=== PATIENT | female | born 1975 ===

== ENCOUNTER 2017-05-11 05:45 | Inpatient (IN) | payer OTHER ==
--- NOTE | 2017-05-11 07:53 | OBHP ---
Datetime: 05/11/2017 06:25 IP Adm Impression: Term, intrauterine IP Admit Plan: Observation/Evaluation Admit Comment, IP Provider: 41 yo at 38+6 wks w/ EDC 05/19/2017 c/o watery VB at 4 am, also c/o abdominal pain since 4am. Pt denies LOF, reports FM. Pt had her PNcare w/ [facility] w/ Dr. Sasha zavala. Pt transferred her care to him at 33 wks. 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, pt denies STDs, abn paps POb hx: 2014 male 2.5 Kg 04/2016 SAB at 6 wks, no D_C PE: AFVSS Gen'l: Pt appears slightly uncomfortable Heart: RRR Chest: Lungs CTA/ b/l Abd: soft, NT, gravid Ext: NT, no edema Speculum exam: no blood VE: 4/80/-3 at 06:19 am EFM: as above [place]: as above A/P: 41 yo at 38+6 wks possibly in early labor GBS negative, FHT reactive Will observe Extremities - PN: Normal Abdomen - PN: Normal Back - PN: Normal Lungs - PN: Normal Neurologic - PN: Normal General - PN: Normal FHR - Baseline A Provider: 130s Membranes, Provider: Intact Contraction Comments Provider: irregular EGA AdmitDate IP: 38.6 Vital Signs Provider: Reviewed IP Chief Complaint: Vaginal bleeding NICHD Variability Prov Fetus A: Moderate 6-25bpm NICHD Accel Fetus A IP Provider: 15X15 FHR Category Provider Fetus A: Category I NICHD Decel Fetus A IP Provider: None Dilatation, Provider: 4 Effacement, Provider: 80 Station, Provider: -3 Genitourinary Exam: Normal
[2017-05-11 08:48] VITALS: BMI 27.6
[2017-05-11] MEDS: Lactated Ringer's 1,000 ML IV SCH ×3 (09:00→12:00)
[2017-05-11] MEDS ORDERED: Fentanyl/Bupivacaine HCl 250 ML EPI ONE (11:03)
[2017-05-11] MEDS ORDERED: Bupivacaine HCl 0.25% PF (10 ml) Inj ONE (11:04)
[2017-05-11 11:18] LABS: BASO # 0.1 K/uL (0.0-0.2); BASO % 0.7 % (0.0-2.0); EOS # 0.1 K/uL (0.0-0.7); EOS % 0.5 % (0.0-4.0); HEMOGLOBIN 12.8 g/dL (12.0-16.0); LYMPH # 3.1 K/uL (1.0-4.3); LYMPH % 19.7 % (20.0-40.0); MEAN CELL VOLUME 79.7 fl (81.0-99.0); MEAN CORPUSCULAR HEMOGLOBIN 26.4 pg (27.0-31.0); MEAN PLATELET VOLUME 8.2 fl (7.2-11.7); MONO # 0.6 K/uL (0.0-0.8); MONO % 3.7 % (0.0-10.0); NEUT # 11.8 K/uL (1.8-7.0); NEUT % 75.4 % (50.0-75.0); NRBC % 0.1 % (0.0-0.0); RBC 4.85 Mil/uL (3.80-5.20); RED CELL DISTRIBUTION WIDTH 15.9 % (11.5-14.5); WHITE BLOOD COUNT 15.7 K/uL (4.8-10.8)
[2017-05-11] MEDS ORDERED: Oxytocin 30 UNITS in Sodium Chloride 0.9% 500 ML IV ONE (12:01)
--- NOTE | 2017-05-11 12:34 | OBADHP ---
Datetime: 05/11/2017 06:25 Admit Comment, IP Provider: 41 yo at 38+6 wks w/ EDC 05/19/2017 c/o watery VB at 4 am, also c/o abdominal pain since 4am. Pt denies LOF, reports FM. Pt had her PNcare w/ [facility] w/ Dr. Sasha zavala. Pt transferred her care to him at 33 wks. 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 I saw this patient 10am and she wanted pain managment. No cervical change ...will obtain anesthesia consult. Also discussed nitrous oxide/IV sedation/augmentation, labor, [place] and care Extremities - PN: Normal Abdomen - PN: Normal Back - PN: Normal Lungs - PN: Normal Neurologic - PN: Normal General - PN: Normal Presentation-Admit: Vertex FHR - Baseline A Provider: 130s Membranes, Provider: Intact Contraction Comments Provider: irregular IP Hx Assessment: The History has been Reviewed and is Current Vital Signs Provider: Reviewed IP Chief Complaint: Uterine contractions NICHD Variability Prov Fetus A: Moderate 6-25bpm NICHD Accel Fetus A IP Provider: 15X15 FHR Category Provider Fetus A: Category I NICHD Decel Fetus A IP Provider: None Dilatation, Provider: 4 Effacement, Provider: 90 Station, Provider: -2 Genitourinary Exam: Normal EGA AdmitDate IP: 38.6 IP Adm Impression: Term, intrauterine ; No Active Labor; Intact Membranes IP Admit Plan: Admit to unit; Initiate labor protocol
[2017-05-11] MEDS ORDERED: Lactated Ringer's 1,000 ML IV SCH (13:30)
[2017-05-11] MEDS ORDERED: Oxytocin 30 UNITS in Sodium Chloride 0.9% 500 ML IV SCH (13:30)
--- NOTE | 2017-05-11 13:47 | OBPN ---
Datetime: 05/11/2017 13:30 IP Progress Impression: Normal progression of labor; Reassuring heart rate IP Informed Consent Obtain: Vaginal Delivery; Risks, Benefits and Alternatives Discussed IP Progress Plan: Continue present management; Augmentation Pool Provider: Negative Membranes, Provider: Intact Contraction Comments Provider: irregular FHR - Baseline A Provider: 130 Presentation-Admit: Vertex IP Progress Note Comment: She feels much better after epidural. A: Latent phase of labor PLAN: attempted AROM but unable ... will start Pitocin ... this was explained to pt and her margarita Esteban. they agreed NICHD Accel Fetus A IP Provider: 15X15 FHR Category Provider Fetus A: Category I NICHD Variability Prov Fetus A: Moderate 6-25bpm Dilatation, Provider: 5 Effacement, Provider: 90 Station, Provider: -2 NICHD Decel Fetus A IP Provider: None Datetime: 05/11/2017 06:25 Vital Signs Provider: Reviewed
[2017-05-11] MEDS ORDERED: Lidocaine 1% Inj (20ml) ONE (14:41)
--- NOTE | 2017-05-11 14:59 | OBPN ---
Datetime: 05/11/2017 14:50 IP Progress Impression: Normal progression of labor; Reassuring heart rate IP Informed Consent Obtain: Vaginal Delivery; Risks, Benefits and Alternatives Discussed IP Procedures: Intrauterine Pressure Catheter; Amnio Infusion Pool Provider: Positive Membranes, Provider: Ruptured FHR - Baseline A Provider: 130 Presentation-Admit: Vertex IP Progress Note Comment: She was not started on Piotcin...she was noted to have early deceleration and SROM with clear fluid A: Occ variable/early decel noted IUPC/Amniuinfuse NICHD Accel Fetus A IP Provider: 15X15 FHR Category Provider Fetus A: Category II NICHD Variability Prov Fetus A: Moderate 6-25bpm Dilatation, Provider: 8-9 Effacement, Provider: 90 Station, Provider: 0 NICHD Decel Fetus A IP Provider: Variable
[2017-05-11] MEDS ORDERED: Sodium Chloride 0.9% 1,000 ML IV SCH (15:00)
[2017-05-11] MEDS ORDERED: Benzocaine/Menthol SPRAY TOP PRN ×2 (17:50→22:17)
[2017-05-11] MEDS ORDERED: Oxycodone/Acetaminophen 5/325 mg Tab PO PRN ×2 (17:50→22:17)
[2017-05-12 07:23] LABS: HEMOGLOBIN 10.8 g/dL (12.0-16.0); MEAN CELL VOLUME 79.7 fl (81.0-99.0); MEAN CORPUSCULAR HEMOGLOBIN 26.8 pg (27.0-31.0); MEAN CORPUSCULAR HGB CONC 33.6 g/dL (33.0-37.0); RBC 4.04 Mil/uL (3.80-5.20); RED CELL DISTRIBUTION WIDTH 15.7 % (11.5-14.5); WHITE BLOOD COUNT 14.5 K/uL (4.8-10.8)
--- NOTE | 2017-05-12 07:37 | OBDS ---
DELIVERY PERSONNEL Delivery Doctor: Varun Colon DO Plaster Lather: Dionne Kerr RN Anesthesiologist: Crow Christianson MD Lung Gun Operator: raghavendra MATERNAL INFORMATION Delivery Anesthesia: Local; Epidural Medications in Delivery: pitocin 30 units after placenta delivery Estimated Blood Loss (ml): 200 Placenta Cultured: No Maternal Complications: Other Other Maternal Complications: variable decel Provider Comments: Over intact perineum, of live male from . Two loose nuchal cords noted and reduced. Infant was crying spontaneously and bulb suctioned. [id number] w as done with baby/mother. 9,9 Placenta delivered intact. EBL 200cc She remained stable LABOR SUMMARY EDC: 05/19/2017 00:00 No. Babies in Womb: 1 Attempted: No Labor Anesthesia: Epidural LABOR INFORMATION Onset of Labor: 05/11/2017 03:30 Complete Dilatation: 05/11/2017 16:30 Oxytocin: N/A Group B Beta Strep: Negative MEMBRANES Membranes Rupture Method: Spontaneous Rupture of Membranes: 05/11/2017 14:30 Length of Rupture (hrs): 3.10 Amniotic Fluid Color: Clear Amniotic Fluid Amount: Small Amniotic Fluid Odor: Normal STAGES OF LABOR Stage 1 hrs: 13 Stage 1 min: 0 Stage 2 hrs: 1 Stage 2 min: 6 Stage 3 hrs: 0 Stage 3 min: 10 Total Time in Labor hrs: 14 Total Time in Labor min: 16 VAGINAL DELIVERY Episiotomy: None Laceration Extension: First Degree Laceration Type: Perineal Other Laceration: none Laceration Repair: Yes Laceration Repair Note: 1% Lidocaine infiltrated (4cc). First degree repaired with 2.0 Vicryl Rapid e suture. Initial Vag Sponge Count: 5 Final Vag Sponge Count: 5 Initial Vag Sharps Count: 2 Final Vag Sharps Count: 2 Sponge Count Correct: Yes Sharps Count Correct: Yes Count Comment: 5 lap pads one syringe / one syringe needle One suture needle BABY A INFORMATION Delivery Date/Time: 05/11/2017 17:36 Method of Delivery: Vaginal Born in Route : Yes : N/A Forceps: N/A Vacuum Extraction: N/A Shoulder Dystocia : No SHOULDER DYSTOCIA BABY A Delivery Date/Time: 05/11/2017 17:36 PRESENTATION/POSITION BABY A Presentation: Cephalic Cephalic Presentation: Vertex Vertex Position: Left Occipital Anterior Breech Presentation: N/A PLACENTA INFORMATION BABY A Placenta Delivery Time : 05/11/2017 17:46 Placenta Method of Delivery: Spontaneous Placenta Status: Delivered SCORES BABY A Heart Rate 1 min: >100 bpm Resp Effort 1 min: Good Cry Reflex Irritability 1 min: Cough or Sneeze or Pulls Away Muscle Tone 1 min: Active Motion Color 1 min: Body [place], Extremities Blue Resuscitation Effort 1 min: N/A; Tactile Stimulation SCORE 1 MIN: 9 Heart Rate 5 min: >100 bpm Resp Effort 5 min: Good Cry Reflex Irritability 5 min: Cough or Sneeze or Pulls Away Muscle Tone 5 min: Active Motion Color 5 min: Body [place], Extremities Blue SCORE 5 MIN: 9 Heart Rate 10 min: >100 bpm Resp Effort 10 min: Good Cry Reflex Irritability 10 min: Cough or Sneeze or Pulls Away Muscle Tone 10 min: Active Motion Color 10 min: Completely [place] SCORE 10 MIN: 10 INFORMATION BABY A Gestational Age at Delivery: 38+6 Gestational Status: Term Infant Outcome : Liveborn Condition : Stable Infant Sex: Male IDENTIFICATION/MEDS BABY A ID Band Number: [id number] ID Band Location: Left Leg; Left Arm WEIGHT/LENGTH BABY A Infant Birthweight (gms): 2705 Infant Weight (lb): 5 Weight (oz): 15 Infant Length Inches: 18.50 Infant Length cms: 47.0 CORD INFORMATION BABY A No. 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
--- NOTE | 2017-05-12 07:38 | OBDS ---
DELIVERY PERSONNEL Delivery Doctor: Varun Colon DO 2Nd [place]: Dionne Kerr RN Anesthesiologist: Crow Christianson MD University Internship: raghavendra MATERNAL INFORMATION Delivery Anesthesia: Local; Epidural Medications in Delivery: pitocin 30 units after placenta delivery Estimated Blood Loss (ml): 200 Placenta Cultured: No Maternal Complications: Other Other Maternal Complications: variable decel Provider Comments: Over intact perineum, of live [facility] from [facility]. Two loose nuchal cords noted and reduced. Infant was crying spontaneously and bulb suctioned. [id number] w as done with baby/mother. 9,9 Placenta delivered intact. EBL 200cc She remained stable LABOR SUMMARY EDC: 05/19/2017 00:00 No. Babies in Womb: 1 Attempted: No Labor Anesthesia: Epidural LABOR INFORMATION Onset of Labor: 05/11/2017 03:30 Complete Dilatation: 05/11/2017 16:30 Oxytocin: N/A Group B Beta Strep: Negative MEMBRANES Membranes Rupture Method: Spontaneous Membranes Rupture Method: Spontaneous Membranes Rupture Method: Spontaneous Membranes Rupture Method: Spontaneous Membranes Rupture Method: Spontaneous Membranes Rupture Method: Spontaneous Membranes Rupture Method: Spontaneous Membranes Rupture Method: Spontaneous Membranes Rupture Method: Spontaneous Membranes Rupture Method: Spontaneous Membranes Rupture Method: Spontaneous Membranes Rupture Method: Spontaneous Membranes Rupture Method: Spontaneous Membranes Rupture Method: Spontaneous Rupture of Membranes: 05/11/2017 14:30 Rupture of Membranes: 05/11/2017 14:30 Rupture of Membranes: 05/11/2017 14:30 Rupture of Membranes: 05/11/2017 14:30 Rupture of Membranes: 05/11/2017 14:30 Rupture of Membranes: 05/11/2017 14:30 Rupture of Membranes: 05/11/2017 14:30 Rupture of Membranes: 05/11/2017 14:30 Rupture of Membranes: 05/11/2017 14:30 Rupture of Membranes: 05/11/2017 14:30 Rupture of Membranes: 05/11/2017 14:30 Rupture of Membranes: 05/11/2017 14:30 Rupture of Membranes: 05/11/2017 14:30 Rupture of Membranes: 05/11/2017 14:30 Length of Rupture (hrs): 3.10 Length of Rupture (hrs): 3.10 Length of Rupture (hrs): 3.10 Length of Rupture (hrs): 3.10 Length of Rupture (hrs): 3.10 Length of Rupture (hrs): 3.10 Length of Rupture (hrs): 3.10 Length of Rupture (hrs): 3.10 Length of Rupture (hrs): 3.10 Length of Rupture (hrs): 3.10 Length of Rupture (hrs): 3.10 Length of Rupture (hrs): 3.10 Length of Rupture (hrs): 3.10 Length of Rupture (hrs): 3.10 Amniotic Fluid Color: Clear Amniotic Fluid Color: Clear Amniotic Fluid Color: Clear Amniotic Fluid Color: Clear Amniotic Fluid Color: Clear Amniotic Fluid Color: Clear Amniotic Fluid Color: Clear Amniotic Fluid Color: Clear Amniotic Fluid Color: Clear Amniotic Fluid Color: Clear Amniotic Fluid Color: Clear Amniotic Fluid Color: Clear Amniotic Fluid Color: Clear Amniotic Fluid Color: Clear Amniotic Fluid Amount: Small Amniotic Fluid Amount: Small Amniotic Fluid Amount: Small Amniotic Fluid Amount: Small Amniotic Fluid Amount: Small Amniotic Fluid Amount: Small Amniotic Fluid Amount: Small Amniotic Fluid Amount: Small Amniotic Fluid Amount: Small Amniotic Fluid Amount: Small Amniotic Fluid Amount: Small Amniotic Fluid Amount: Small Amniotic Fluid Amount: Small Amniotic Fluid Amount: Small Amniotic Fluid Odor: Normal Amniotic Fluid Odor: Normal Amniotic Fluid Odor: Normal Amniotic Fluid Odor: Normal Amniotic Fluid Odor: Normal Amniotic Fluid Odor: Normal Amniotic Fluid Odor: Normal Amniotic Fluid Odor: Normal Amniotic Fluid Odor: Normal Amniotic Fluid Odor: Normal Amniotic Fluid Odor: Normal Amniotic Fluid Odor: Normal Amniotic Fluid Odor: Normal Amniotic Fluid Odor: Normal STAGES OF LABOR Stage 1 hrs: 13 Stage 1 min: 0 Stage 2 hrs: 1 Stage 2 min: 6 Stage 3 hrs: 0 Stage 3 min: 10 Total Time in Labor hrs: 14 Total Time in Labor min: 16 VAGINAL DELIVERY Episiotomy: None Laceration Extension: First Degree Laceration Type: Perineal Other Laceration: none Laceration Repair: Yes Laceration Repair Note: 1% Lidocaine infiltrated (4cc). First degree repaired with 2.0 Vicryl Rapid e suture. Initial Vag Sponge Count: 5 Final Vag Sponge Count: 5 Initial Vag Sharps Count: 2 Final Vag Sharps Count: 2 Sponge Count Correct: Yes Sharps Count Correct: Yes Count Comment: 5 lap pads one syringe / one syringe needle One suture needle BABY A INFORMATION Infant Delivery Date/Time: 05/11/2017 17:36 Method of Delivery: Vaginal Born in Route : Yes : N/A Forceps: N/A Vacuum Extraction: N/A Shoulder Dystocia : No SHOULDER DYSTOCIA BABY A Infant Delivery Date/Time: 05/11/2017 17:36 PRESENTATION/POSITION BABY A Presentation: Cephalic Cephalic Presentation: Vertex Vertex Position: Left Occipital Anterior Breech Presentation: N/A PLACENTA INFORMATION BABY A Placenta Delivery Time : 05/11/2017 17:46 Placenta Method of Delivery: Spontaneous Placenta Status: Delivered SCORES BABY A Heart Rate 1 min: >100 bpm Resp Effort 1 min: Good Cry Reflex Irritability 1 min: Cough or Sneeze or Pulls Away Muscle Tone 1 min: Active Motion Color 1 min: Body [place], Extremities Blue Resuscitation Effort 1 min: N/A; Tactile Stimulation SCORE 1 MIN: 9 Heart Rate 5 min: >100 bpm Resp Effort 5 min: Good Cry Reflex Irritability 5 min: Cough or Sneeze or Pulls Away Muscle Tone 5 min: Active Motion Color 5 min: Body [place], Extremities Blue SCORE 5 MIN: 9 Heart Rate 10 min: >100 bpm Resp Effort 10 min: Good Cry Reflex Irritability 10 min: Cough or Sneeze or Pulls Away Muscle Tone 10 min: Active Motion Color 10 min: Completely [place] SCORE 10 MIN: 10 INFANT INFORMATION BABY A Gestational Age at Delivery: 38+6 Gestational Status: Term Infant Outcome : Liveborn Condition : Stable Sex: Male IDENTIFICATION/MEDS BABY A ID Band Number: [id number] ID Band Location: Left Leg; Left Arm WEIGHT/LENGTH BABY A Infant Birthweight (gms): 2705 Infant Weight (lb): 5 Weight (oz): 15 Infant Length Inches: 18.50 Infant Length cms: 47.0 CORD INFORMATION BABY A No. Cord Vessels: 3 Nuchal Cord : Around Neck x2, Loose Nuchal Cord Other: no True Knot: no Infant Cord pH Baby Arterial: no Infant Cord pH Baby Venous: no Cord Blood Taken: Yes Banking/Donate Info: no Infant Suction: Mouth; Nose ASSESSMENT BABY A Complications: None Physical Findings at Delivery: Within Normal Limits Respirations: Appears Normal Nutrition Tech/ALS Called : No Transferred To: Remains with Mother
[2017-05-12] MEDS: Multivitamin With Minerals Tab PO SCH (08:52)
[2017-05-12] MEDS ORDERED: [UNRECOGNIZED DRUG - REMARK] PO SCH (09:00)
[2017-05-12] MEDS ORDERED: Prenatal Multivit/Folic Acid/Iron Tab PO SCH ×2 (09:00)
--- NOTE | 2017-05-12 11:58 | OBPPN ---
Datetime: 05/12/2017 11:56 PP Pain Prov: Within normal limits PP Nausea Prov: Denies PP Flatus Prov: Yes PP Breasts Prov: Not Done PP Heart Prov: Normal PP Lungs Prov: Normal PP Abdomen/Uterus Prov: Normal PP Lochia Prov: Not Done PP CVA Tenderness Prov: Normal PP Extremities Prov: Normal PP C/S Incision Prov: Normal PP Progress Prov: Normal PP Impression Prov: Normal progression PP Plan Prov: Continue present management PP Progress Note Prov: Patient doing well. Well-controlled Vital signs stable afebrile Uterus firm below the umbilicus Incision clean dry and intact Postoperative day #2 Encourage ambulation, regular diet, analgesia as needed, anticipate discharge in a.m. Vital Signs Provider PP: Reviewed
[2017-05-13] MEDS: Multivitamin With Minerals Tab PO SCH (08:35)
[2017-05-13 19:42] VITALS: BP 120/80; PULSE 86; RESP 20; TEMP 98.1; O2SAT 100
--- NOTE | 2017-05-14 09:55 | OBPPN ---
Datetime: 05/13/2017 09:52 PP Pain Prov: Within normal limits PP Nausea Prov: Denies PP Flatus Prov: Yes PP BM Prov: Yes PP Breasts Prov: Normal PP Heart Prov: Normal PP Lungs Prov: Normal PP Abdomen/Uterus Prov: Normal PP Lochia Prov: Normal PP Vulva/Perineum Prov: Normal PP CVA Tenderness Prov: Normal PP Extremities Prov: Normal PP C/S Incision Prov: Not Applicable PP Progress Prov: Normal PP Impression Prov: Normal progression PP Plan Prov: Continue present management; Discharge PP Progress Note Prov: day #2 status post normal spontaneous vaginal delivery, recovering well Discharge home with precautions Return to office in 6 weeks for checkup IP PP Procedures: None Vital Signs Provider PP: Reviewed; Within Normal Limits
--- NOTE | 2017-05-14 09:58 | OBDCSUM ---
Datetime: 05/13/2017 10:31 Discharge Instructions, Provider: Routine instructions given Discharge Diagnosis, Provider: Term Delivered Contraception discussed, Prov: Yes
== END 2017-05-13 15:07 | disposition home or self-care (01) | DRG 775 ==
LOC: H.EROB2 05:45 → H.L&D 09:52 → H.OB/GYN 22:14
PROVIDERS: ADMIT Obstetrics & Gynecology; ATTEND Obstetrics & Gynecology
PROC: 10E0XZZ Delivery of Products of Conception, External Approach (ICD-10-PCS; principal; 2017-05-11)
PROC: 0HQ9XZZ Repair Perineum Skin, External Approach (ICD-10-PCS; 2017-05-11)
PROC: 4A1HXCZ Monitoring of Products of Conception, Cardiac Rate, External Approach (ICD-10-PCS; 2017-05-11)
DX: O76 Abnormality in fetal heart rate and rhythm complicating labor and delivery (principal); O69.81X0 Labor and delivery complicated by cord around neck, without compression, not applicable or unspecified; O70.0 First degree perineal laceration during delivery; Z37.0 Single live birth; Z3A.38 38 weeks gestation of pregnancy; O09.523 Supervision of elderly multigravida, third trimester